=== PATIENT | male | born 1985 | race Caucasian/White ===

== ENCOUNTER 2022-12-18 23:22 | Emergency (ER) | payer BC ==
[2022-12-19] MEDS ORDERED: ACETAMINOPHEN 500 MG TAB ONE (00:41)
[2022-12-19] MEDS ORDERED: KETOROLAC 30 MG/ML INJ ONE (00:41)
[2022-12-19] MEDS ORDERED: NA CHLORIDE 0.9% 1,000 ML ONE (00:41)
[2022-12-19] MEDS ORDERED: ONDANSETRON 4 MG/2 ML VIAL ONE (00:41)
[2022-12-19 00:58] LABS: Absolute Lymphocytes (CBC) 1.9 K/uL (0.7-4.9); Lymphocytes % 27.5 % (15.3-44.8); MCV 93.4 fL (80-100); MPV 7.3 fL (7.6-11.3); RBC Red Blood Cell Count 4.28 M/uL (4.33-5.43)
[2022-12-19 01:21] LABS: ALT/SGPT 23 U/L (16-61); AST/SGOT 13 U/L (15-37); Albumin 4.2 g/dL (3.4-5.0); Alkaline Phosphatase 41 U/L (45-117); BUN Blood Urea Nitrogen 16 mg/dL (7-18); Bicarbonate 28 mEq/L (21-32); Bilirubin Direct 0.2 mg/dL (0-0.2); Bilirubin Indirect, Calculated 0.3 mg/dL (0.2-0.8); Bilirubin Total 0.5 mg/dL (0.2-1.0); Creatine Phosphokinase 96 U/L (39-308); Glomerular Filtration Rate 104 ml/min (=/>90); Glucose Level 96 mg/dL (74-106); Potassium 3.9 mEq/L (3.5-5.1); Protein, Total 7.5 g/dL (6.4-8.2); Sodium Level 136 mEq/L (136-145)
--- NOTE | 2022-12-19 03:01 | ER ---
Nurse's Notes [facility] Name: Virgilio Nieves Age: 37 yrs Sex: Male : 1985 Arrival Date: 12/18/2022 Time: 23:27 Bed 15 Private MD: Diagnosis: Suicide attempt, acute depression, suicide attempt via hanging, soft tissue injury neck - mild Presentation: 12/18 23:32 Chief complaint: Patient states: attempted hanging with a sheet while in his cell,onset pf1 at approximately 1830. Patient stated he does not want to live and is has been depressed. Patient C/O anterior and posterior neck pain of 10. 23:32 Coronavirus screen: Vaccine status: Patient reports receiving the 2nd dose of the covid pf1 vaccine. 3 doses of Moderna Client denies travel out of the [place] in the last 14 days. At this time, the client does not indicate any symptoms associated with coronavirus-19. Ebola Screen: Patient negative for fever greater than or equal to 101.5 degrees Fahrenheit, and additional compatible Ebola Virus Disease symptoms. 23:32 Method Of Arrival: Law Enforcement: [place] [employer] pf1 23:35 Initial Sepsis Screen: Does the patient meet any 2 criteria? No. Patient's initial pf1 sepsis screen is negative. Does the patient have a suspected source of infection? No. Patient's initial sepsis screen is negative. Risk Assessment: Do you want to hurt yourself or someone else? Patient reports desire/thoughts of hurting themselves or someone else. Provider notified. 23:35 Acuity: LUIS 2 pf1 23:35 Note Due to ER room capacity, patient waiting in Pod 1 TX 23 with guards to watch iw patient until ER TX 15 is available and cleaned. 12/19 00:00 Note Patient moved to ER TX 15 for 1:1 suicide precautions with sitter. iw 00:48 Onset of symptoms was December 18, 2022. as6 Historical: - Allergies: 00:07 Sulfa (Sulfonamide Antibiotics); pf1 - Home Meds: 00:07 Flovent Inhl [Active]; Albuterol Inhl [Active]; pf1 - PMHx: 00:07 Asthma; hyperglycemia; pf1 - Immunization history:: Adult Immunizations up to date, Last tetanus immunization: < 10 years ago Flu vaccine is not up to date. - Social history:: Smoking status: Patient/guardian denies using tobacco. - Family history:: not pertinent. Screenin:45 [facility] ED Fall Risk Assessment (Adult) Score/Fall Risk Level 0 - 2 = Low Risk. Abuse as6 screen: Denies threats or abuse. Denies injuries from another. Nutritional screening: No deficits noted. Tuberculosis screening: No symptoms or risk factors identified. Assessment: 00:00 General: Appears in no apparent distress. Behavior is calm, cooperative. Pain: as6 Complains of pain in neck. Neuro: Level of Consciousness is awake, alert, obeys commands, Oriented to person, place, time, situation. Cardiovascular: Capillary refill < 3 seconds Patient's skin is warm and dry. Respiratory: Airway is patent Trachea midline Respiratory effort is even, unlabored, Respiratory pattern is regular, symmetrical. GI: No deficits noted. No signs and/or symptoms were reported involving the gastrointestinal system. : No deficits noted. No signs and/or symptoms were reported regarding the genitourinary system. EENT: No deficits noted. No signs and/or symptoms were reported regarding the EENT system. Derm: circumferential erythremia around neck. Derm: Musculoskeletal: No deficits noted. No signs and/or symptoms reported regarding the musculoskeletal system. 02:00 General: NAD, pt eating snacks at this time, pt cooperative, respirations even and non as6 labored, no other complaints or concerns at this time, sitter with pt, security with pt. 03:10 General: pt discharged back to [facility] with guards. pt going to be on a psych hold with as6 suicide watch. Psych: 00:00 [place] Suicide Severity Screening: In the past month, have you wished you were as6 or wished you could go to sleep and not wake up? Patient responds "yes." Based off the client's responses additional C-SSRS screening is required. "In the past month, have you actually had any thoughts of killing yourself?" Patient responds "yes." Based off the client's response additional [place] suicide severity screening questions to be further documented on paper forms. "In your lifetime, have you ever done anything, started to do anything, or prepared to do anything to end your life?" Patient responds "yes." Patient reports suicidal intent within 3 past months. Subjective: Patient's mood is sad, Delusions are denied, Hallucinations are denied Having thoughts of suicide. Plan for suicide is hanging. 00:00 Objective: Patient is cooperative, using poor eye contact, Speech is normal, Affect is as6 flat. Interventions: Searched person for dangerous items. Safety Checks: Personal items have been removed. Door is open. No visitors are present at this time. Pt denies substance abuse. Commitment: Patient will be an involuntary commitment. pt from [facility], guards at bedside. Vital Signs: 12/18 23:35 BP 118 / 84; Pulse 71; Resp 18; Temp 98.1; Pulse Ox 97% on R/A; Weight 70.31 kg; Height pf1 5 ft. 10 in. ; Pain 05/15; 12/19 03:10 BP 121 / 73; Pulse 76; Resp 18 S; Temp 98.1(O); Pulse Ox 96% on R/A; as6 12/18 23:35 Body Mass Index 22.24 (70.31 kg, 177.8 cm) pf1 12/18 23:35 Pain Scale: Adult pf1 ED Course: 12/18 23:32 Patient arrived in ED. ja2 23:33 Rangel Steven MD is Attending Physician. sp4 12/19 00:00 Bed in low position. Call light in reach. Security at bedside. Patient is placed in as6 psych hold. 00:07 Triage completed. pf1 00:11 Tonny Pitts, MEGHANN is Primary Nurse. as6 00:34 Inserted saline lock: 20 gauge in right forearm, using aseptic technique. Blood as6 collected. 00:34 Arm band placed on. as6 01:06 CT Neck Angio In Process Unspecified. EDMS 01:15 No provider procedures requiring assistance completed. as6 02:17 Urine collected: clean catch specimen. wm 02:17 Warm blanket given. Diet: Patient given snack. Patient given water. Tolerated well. wm 03:10 IV discontinued, intact, bleeding controlled, No redness/swelling at site. Pressure as6 dressing applied. Administered Medications: 00:10 Drug: NS 0.9% IV 1000 ml Route: IV; Rate: 125 ml/hr; Site: right antecubital; pf1 03:13 Follow up: Response: No adverse reaction; IV Status: Completed infusion; IV Intake: as6 1000ml 00:10 Drug: Ketorolac IVP 30 mg Route: IVP; Site: right antecubital; pf1 03:13 Follow up: Response: No adverse reaction as6 00:10 Drug: Ondansetron IVP 4 mg Route: IVP; Site: right antecubital; pf1 03:13 Follow up: Response: No adverse reaction as6 00:10 Drug: Acetaminophen PO 1000 mg Route: PO; pf1 03:12 Follow up: Response: No adverse reaction as6 03:03 Drug: Tessalon Perle PO 200 mg Route: PO; as6 03:12 Follow up: Response: No adverse reaction as6 Medication: 00:45 VIS not applicable for this client. as6 Intake: 03:13 IV: 1000ml; Total: 1000ml. as6 Outcome: 03:00 Discharge ordered by . [email or web address] 03:00 Condition: stable as6 03:07 Discharged to Law Enforcement as6 03:07 Discharge instructions given to patient, Instructed on discharge instructions, follow up and referral plans. medication usage, Demonstrated understanding of instructions, follow-up care, medications, Prescriptions given X 1. 03:15 Patient left the ED. iw Signatures: Dispatcher [employer] EDMS Josie Sutton RN RN iw Marsh, Wendy wm Alexander, Jessica ja2 Slawson, Ashby, RN RN asLisa Gordon RN RN pf1 Rangel Steven MD MD sp4 Corrections: (The following items were deleted from the chart) 07:56 03:13 Patient left the ED. as6 iw
--- NOTE | 2022-12-19 03:01 | EDPHYS ---
Physician Documentation [facility] Name: Virgilio Nieves Age: 37 yrs Sex: Male : 1985 Arrival Date: 12/18/2022 Time: 23:27 Bed 15 Private MD: ED Physician Rangel Steven HPI: 12/19 01:58 This 37 yrs old Male presents to ER via Law Enforcement with complaints of sp4 acute hanging attempt in assisted. 01:58 37-year-old male with history of asthma presents with acute suicide attempt via hanging sp4 in the penitentiary block. Patient was brought in with 3 guards. Patient reports that he attempted to hang himself via the sheet on his bed. Patient has red martins on his neck from attempted hanging . Patient states he is feeling depressed. He denied prior suicide attempt. He also complains of the pain in the neck and throat. . Historical: - Allergies: 00:07 Sulfa (Sulfonamide Antibiotics); pf1 - Home Meds: 00:07 Flovent Inhl [Active]; Albuterol Inhl [Active]; pf1 - PMHx: 00:07 Asthma; hyperglycemia; pf1 - Immunization history:: Adult Immunizations up to date, Last tetanus immunization: < 10 years ago Flu vaccine is not up to date. - Social history:: Smoking status: Patient/guardian denies using tobacco. - Family history:: not pertinent. ROS: 01:58 Constitutional: Negative for fever, chills, and weight loss, positive for neck pain sp4 Eyes: Negative for injury, pain, redness, and discharge, ENT: Negative for discharge, positive for neck injury associated with tingling, positive for sore throat Neck: Positive for neck pain associated with suicide attempt and pain of soft tissues around the neck Cardiovascular: Negative for chest pain, palpitations, and edema, Respiratory: Negative for shortness of breath, cough, wheezing, and pleuritic chest pain, Abdomen/GI: Negative for abdominal pain, nausea, vomiting, diarrhea, and constipation, Back: Negative for injury and pain, : Negative for injury, bleeding, discharge, and swelling, MS/Extremity: Negative for injury and deformity, Skin: Negative for injury, rash, and discoloration, Neuro: Negative for headache, weakness, numbness, tingling, and seizure, Psych: Negative for depression, anxiety, Allergy/Immunology: Negative for hives, rash, and allergies Endocrine: Negative for neck swelling, polydipsia, polyuria, polyphagia, and weight changes Hematologic/Lymphatic: Negative for swollen nodes, abnormal bleeding, and unusual bruising Exam: 01:58 Constitutional: This is a well developed, well nourished patient who is awake, alert, sp4 and in no acute distress. Head/Face: Normocephalic, atraumatic. Eyes: Pupils equal round and reactive to light, extra-ocular motions intact. Lids and lashes normal. Conjunctiva and sclera are not injected. Cornea within normal limits. Periorbital areas with no swelling, redness, or edema. ENT: Nares patent. No nasal discharge, no septal abnormalities noted. Tympanic membranes are normal and external auditory canals are clear. Oropharynx with no redness, swelling, or masses, exudates, or evidence of obstruction, uvula midline. Mucous membranes moist. Neck: Trachea midline, no thyromegaly or masses palpated, and no cervical lymphadenopathy. Supple, full range of motion without nuchal rigidity, or vertebral point tenderness. There are red martins to the neck, tenderness to neck soft tissues, no significant swelling or mass. Chest/axilla: Normal chest wall appearance and motion. Nontender with no deformity. No lesions are appreciated. Cardiovascular: Regular rate and rhythm with a normal S1 and S2. No gallops, murmurs, or rubs. Normal PMI, no JVD. No pulse deficits. Respiratory: Lungs have equal breath sounds bilaterally, clear to auscultation and percussion. No rales, rhonchi or wheezes noted. No increased work of breathing, no retractions or nasal flaring. Abdomen/GI: Soft, non-tender, with normal bowel sounds. No distension or tympany. No guarding or rebound. No evidence of tenderness throughout. Back: No spinal tenderness. No costovertebral tenderness. Male : Normal genitalia with no discharge or lesions. Skin: Warm, dry with normal turgor. Normal color with no rashes, no lesions, and no evidence of cellulitis. MS/ Extremity: Pulses equal, no cyanosis. Neurovascular intact. Full, normal range of motion. Neuro: Awake and alert, GCS 15, oriented to person, place, time, and situation. Cranial nerves II-XII grossly intact. Motor strength 5/5 in all extremities. Sensory grossly intact. Psych: Awake, alert, with orientation to person, place and time. Behavior, mood, and affect are within normal limits Vital Signs: 12/18 23:35 BP 118 / 84; Pulse 71; Resp 18; Temp 98.1; Pulse Ox 97% on R/A; Weight 70.31 kg; Height pf1 5 ft. 10 in. ; Pain 05/15; 12/19 03:10 BP 121 / 73; Pulse 76; Resp 18 S; Temp 98.1(O); Pulse Ox 96% on R/A; as6 12/18 23:35 Body Mass Index 22.24 (70.31 kg, 177.8 cm) pf1 12/18 23:35 Pain Scale: Adult pf1 MDM: 12/18 23:40 Patient medically screened. [facility] 12/19 01:58 Differential diagnosis: closed head injury, Soft tissue neck injury. Data reviewed: [facility] vital signs, nurses notes, lab test result(s), radiologic studies, CT scan. Consideration of Admission/Observation Escalation of care including admission/observation considered. ED course: CT soft tissue neck /CT angiography neck - revealed no posttraumatic abnormality of the cervical arterial vasculature, advanced C5-C6 and C6-C7 degenerative changes. Left sphenoid sinus disease. Overall no acute abnormality visualized. 02:57 ED course: Patient is medically cleared from emergency point of view and he is stable sp4 to go back to [facility] with suicide watch.... 12/18 23:40 Order name: Acetaminophen; Complete Time: 34 [facility] 12/18 23:40 Order name: Basic Metabolic Panel; Complete Time: :34 [facility] 12/18 23:40 Order name: CBC with Diff; Complete Time: :34 [facility] 12/18 23:40 Order name: ETOH Level; Complete Time: :34 [facility] 12/18 23:40 Order name: Hepatic Function; Complete Time: [facility] 12/18 23:40 Order name: Salicylate; Complete Time: [facility] 12/18 23:40 Order name: Urinalysis w/ reflexes [facility] 12/18 23:40 Order name: Urine Drug Screen [facility] 12/18 23:44 Order name: Lactate w/ 2H reflex if indic.; Complete Time: :34 sp4 12/19 00:49 Order name: Creatine Phosphokinase; Complete Time: 01:34 [facility] 12/18 23:39 Order name: CT Neck Angio sp4 12/18 23:40 Order name: IV Saline Lock; Complete Time: 00:34 sp4 12/18 23:40 Order name: Labs collected and sent; Complete Time: 00:34 sp4 12/18 23:40 Order name: Suicide Precautions; Complete Time: 00:24 sp4 12/18 23:40 Order name: Suicide Screening ([place]); Complete Time: 00:45 sp4 Administered Medications: 00:10 Drug: NS 0.9% IV 1000 ml Route: IV; Rate: 125 ml/hr; Site: right antecubital; pf1 03:13 Follow up: Response: No adverse reaction; IV Status: Completed infusion; IV Intake: as6 1000ml 00:10 Drug: Ketorolac IVP 30 mg Route: IVP; Site: right antecubital; pf1 03:13 Follow up: Response: No adverse reaction as6 00:10 Drug: Ondansetron IVP 4 mg Route: IVP; Site: right antecubital; pf1 03:13 Follow up: Response: No adverse reaction as6 00:10 Drug: Acetaminophen PO 1000 mg Route: PO; pf1 03:12 Follow up: Response: No adverse reaction as6 03:03 Drug: Tessalon Perle PO 200 mg Route: PO; as6 03:12 Follow up: Response: No adverse reaction as6 Disposition Summary: 12/19/22 03:00 Discharge Ordered Location: Home sp4 Problem: new sp4 Symptoms: have improved sp4 Condition: Stable sp4 Diagnosis - Suicide attempt, acute depression, suicide attempt via hanging, soft tissue injury sp4 neck - mild Followup: sp4 - With: Private Physician - When: As needed - Reason: Discharge Instructions: - Discharge Summary Sheet sp4 - Contusion, [id number] sp4 Forms: - Medication Reconciliation Form sp4 Prescriptions: - Ibuprofen 800 mg Oral Tablet - take 1 tablet by ORAL route every 8 hours As needed take with food; 30 tablet; sp4 Refills: 0, Product Selection Permitted Signatures: Dispatcher [employer] Tonny Jay RN RN as6 Lisa Milligan RN RN pf1 Rangel Steven MD MD sp4 Corrections: (The following items were deleted from the chart) 00:48 12/18 23:44 CREATINE PHOSPHOKINASE+[id number] ordered. EDMS EDMS
[2022-12-19 03:03] LABS: Barbiturates NEGATIVE (NEGATIVE); Benzodiazepines NEGATIVE (NEGATIVE); Cocaine NEGATIVE (NEGATIVE); METHAMPHETAM NEGATIVE (NEGATIVE); Methadone NEGATIVE (NEGATIVE); Opiates NEGATIVE (NEGATIVE); Phencyclidine NEGATIVE (NEGATIVE); THC Cannibis NEGATIVE (NEGATIVE)
[2022-12-19] MEDS ORDERED: BENZONATATE 100 MG CAP PO ONE (03:08)
[2022-12-19 03:21] LABS: Specific Gravity > 1.035 (1.005-1.030); Urine Bilirubin NEGATIVE (Negative); Urine Blood Negative (Negative); Urine Clarity Clear (Clear); Urine Color Light-Yellow (Yellow); Urine Glucose NEGATIVE (Negative); Urine Protein NEGATIVE (Negative); Urine Urobilinogen Normal (Normal); Urine pH 6.5 (5.0-7.0)
[2022-12-19 03:27] VITALS: TEMP 98.1
[2022-12-19 03:29] VITALS: BP 121/73; O2SAT 96
--- NOTE | 2022-12-19 16:02 | RAD REPORT ---
EXAM DESCRIPTION: CT - Neck Angio - 12/19/2022 6:37 am CLINICAL HISTORY: The patient is 37 years old and is Male; attempted hanging TECHNIQUE: Routine carotid CT angiography protocol was performed with intravenous contrast. NASCET criteria using the distal ICAs for comparison were used for evaluation of stenoses. This CT exam w as performed using one or more of the following dose reduction techniques: automated exposure contr ol, adjustment of the mA and/or kV according to patient size, and/or use of iterative reconstruction technique. MIP reconstructed images were created and reviewed. DLP: 391 mGy*cm COMPARISON: None. FINDINGS: VASCULATURE: RIGHT COMMON CAROTID ARTERY: Unremarkable. No occlusion or significant stenosis. No dissection. RIGHT INTERNAL CAROTID ARTERY: Unremarkable. Extracranial segment is patent with no occlusion or significant stenosis. No dissection. RIGHT EXTERNAL CAROTID ARTERY: Unremarkable. No occlusion. RIGHT VERTEBRAL ARTERY: Unremarkable. No occlusion or significant stenosis. No dissection. LEFT COMMON CAROTID ARTERY: Unremarkable. No occlusion or significant stenosis. No dissection. LEFT INTERNAL CAROTID ARTERY: Unremarkable. Extracranial segment is patent with no occlusion or s ignificant stenosis. No dissection. LEFT EXTERNAL CAROTID ARTERY: Unremarkable. No occlusion. LEFT VERTEBRAL ARTERY: Unremarkable. No occlusion or significant stenosis. No dissection. NECK: BONES/JOINTS: Advanced C5-6 and C6-7 degenerative changes. SOFT TISSUES: Unremarkable. SINUSES: Left sphenoid sinus disease. LUNG APICES: Visualized lung zones are clear. CAROTID STENOSIS REFERENCE USING NASCET CRITERIA: % ICA stenosis = (1 - narrowest ICA diameter/diameter of distal cervical ICA) x 100. Mild - <50% stenosis. Moderate - 50-69% stenosis. Severe - 70-94% stenosis. Near occlusion - 95-99% stenosis. Occluded - 100% stenosis. IMPRESSION: 1. No posttraumatic abnormality of the cervical arterial vasculature. 2. Advanced C5-6 and C6-7 degenerative changes. 3. Left sphenoid sinus disease. Electronically signed by: Lazaro Clemente DO 12/19/2022 1:42 AM CDT Due to temporary technical issues with the PACS/Fluency reporting system, reports are being signed by the in house radiologist without review as a courtesy to ensure prompt reporting. The interpreting r adiologist is fully responsible for the content of the report.
== END 2022-12-19 03:13 | disposition home or self-care (01) ==
LOC: ER 23:27
DX: S10.84XA External constriction of other specified part of neck, initial encounter (principal); X83.8XXA Intentional self-harm by other specified means, initial encounter; Y92.143 Cell of prison as the place of occurrence of the external cause; F32.A Depression, unspecified; Z88.2 Allergy status to sulfonamides
CPT/HCPCS: 96361; 85025; 80048; 36415; 82550; 80076; 83605; 81003; 80307; 70498; 96375; 96374; 99285; Q9967; J2405; G0480 ×3; J7030